=== PATIENT | female | born 1970 | race African-American/Black ===

== ENCOUNTER 2022-12-22 09:19 | Outpatient (CLI) | payer BC | END 2022-12-22 09:20 | disposition home or self-care (01) | LOC: CSHLAB 09:19 | PROVIDERS: ATTEND Obstetrics & Gynecology | DX: Z01.818 Encounter for other preprocedural examination (principal); D25.9 Leiomyoma of uterus, unspecified | CPT/HCPCS: 84703; 85027; 86850; 86900; 86901; 93005; 93010 ==

== ENCOUNTER 2022-12-24 07:19 | Day surgery (SDC) | payer BC ==
[2022-12-22 11:51] LABS: Mean Corpuscular HGB CONC 32.5 g/dL (32.0-36.0); Mean Corpuscular Hemoglobin 28.9 pg (27.0-33.0); Mean Corpuscular Volume 88.9 fl (81.6-98.3); Mean Platelet Volume 10.8 fl (7.4-10.4); Platelet Count 284 10x3/uL (150-450); RBC Distribution Width 14.5 % (11.5-14.5); Red Blood Cell (RBC) Count 4.15 10x6/uL (3.90-5.03); White Blood Cell (WBC) Count 4.5 10x3/uL (3.5-10.5)
[2022-12-22 12:03] LABS: BHCG - Serum Negative (NEGATIVE); Pregs Control Background? CLEAR/WHITE (CLR/WHITE); Pregs Control Bar Appear? YES (CONTROL BAR)
[2022-12-22 15:10] VITALS: BMI 37.1
[2022-12-24] MEDS ORDERED: CeleCOXIB 100 MG CAP ONE (07:34)
[2022-12-24] MEDS ORDERED: Famotidine/PF 20 mg/2ml Vial ONE (07:34)
[2022-12-24] MEDS ORDERED: Gabapentin 300 MG CAP ONE (07:47)
[2022-12-24] MEDS ORDERED: Lidocaine 1% PF 5 ML VIAL ONE (09:21)
[2022-12-24] MEDS ORDERED: Rocuronium Bromide 10 MG/ML (10ML VIAL) ONE (09:21)
[2022-12-24] MEDS ORDERED: Fentanyl 100 MCG/2 ML VIAL ONE (09:21)
[2022-12-24] MEDS ORDERED: Ondansetron PF 4 MG/2 ML Vial ONE (09:21)
[2022-12-24] MEDS ORDERED: PROPOFOL 20 ML ONE ×2 (09:21→11:21)
[2022-12-24] MEDS ORDERED: Bupivacaine HCl 0.5%/Epinephrine 1:200,000/PF 30 ml Vial ONE (09:24)
[2022-12-24] MEDS ORDERED: CEFAZOLIN 2 GM VIAL ONE (09:44)
[2022-12-24] MEDS ORDERED: SUGAMMADEX SODIUM 200 MG/2 ML VIAL ONE (10:57)
[2022-12-24] MEDS ORDERED: ePHEDrine Sulfate 50 MG/10 ML VIAL ONE (11:19)
[2022-12-24] MEDS ORDERED: HYDROcodone/Acetaminophen 5/325 mg Tablet ONE (13:27)
== END 2022-12-24 14:25 | disposition home or self-care (01) ==
LOC: CSHSDC 07:19
PROVIDERS: ATTEND Obstetrics & Gynecology
PROC: 0UT9FZZ Resection of Uterus, Via Natural or Artificial Opening With Percutaneous Endoscopic Assistance (ICD-10-PCS; principal; 2022-12-24)
PROC: 0UT7FZZ Resection of Bilateral Fallopian Tubes, Via Natural or Artificial Opening With Percutaneous Endoscopic Assistance (ICD-10-PCS; principal; 2022-12-24)
PROC: 0UT24ZZ Resection of Bilateral Ovaries, Percutaneous Endoscopic Approach (ICD-10-PCS; 2022-12-24)
DX: D25.9 Leiomyoma of uterus, unspecified (principal); N72 Inflammatory disease of cervix uteri; N73.6 Female pelvic peritoneal adhesions (postinfective); N87.9 Dysplasia of cervix uteri, unspecified; N88.8 Other specified noninflammatory disorders of cervix uteri; N83.299 Other ovarian cyst, unspecified side; N92.0 Excessive and frequent menstruation with regular cycle; N94.6 Dysmenorrhea, unspecified; I10 Essential (primary) hypertension; Z79.899 Other long term (current) drug therapy; E66.9 Obesity, unspecified; Z79.82 Long term (current) use of aspirin; Z68.39 Body mass index [BMI] 39.0-39.9, adult
CPT/HCPCS: 36415; 84703; 85027; 86850; 86900; 86901; 88307; C1776; J2405; J2704; J3010; S0028

== ENCOUNTER 2023-04-28 09:09 | Outpatient (CLI) | payer BC | END 2023-04-28 09:10 | disposition home or self-care (01) | LOC: CSHCT 09:09 | PROVIDERS: ATTEND Surgery | DX: M47.24 Other spondylosis with radiculopathy, thoracic region (principal); M48.04 Spinal stenosis, thoracic region; G95.9 Disease of spinal cord, unspecified | CPT/HCPCS: 72128; 72146 ==